=== PATIENT | female | born 1980 | race African-American/Black ===

== ENCOUNTER 2023-09-27 14:31 | Emergency (ER) | payer SELFPAY ==
[2023-09-27 15:31] LABS: STREP A BY PCR NOT DETECTED (NOT DETECT)
[2023-09-27 15:35] LABS: INFLUENZA A NAA NEGATIVE (NEGATIVE); INFLUENZA B NAA NEGATIVE (NEGATIVE); RESPIRATORY SYNCYTIAL VIR NAA NEGATIVE (NEGATIVE)
[2023-09-27 15:36] LABS: CORONAVIRUS COVID-19 NAA NEGATIVE (NEGATIVE)
== END 2023-09-27 16:06 | disposition home or self-care (01) ==
LOC: KA.ED 14:31
DX: J06.9 Acute upper respiratory infection, unspecified (principal)
CPT/HCPCS: 0241U; 71046; 87651-QW; 99285